=== PATIENT | female | born 1960 | race Caucasian/White ===

== ENCOUNTER 2017-02-23 01:59 | Emergency (ER) | payer SELFPAY ==
[~2017-02-23] VITALS: Ht 154.9 cm; Wt 45.4 kg
[2017-02-23] MEDS ORDERED: PROBIOTIC1 EAC1 PO (03:13)
== END 2017-02-23 04:34 | disposition short-term general hospital (02) ==
LOC: ER 01:59
DX: R09.1 Pleurisy (principal); R07.89 Other chest pain; I10 Essential (primary) hypertension; Z91.018 Allergy to other foods; F17.210 Nicotine dependence, cigarettes, uncomplicated
CPT/HCPCS: J2270